=== PATIENT | male | born 1975 | race Caucasian/White ===

== ENCOUNTER 2022-10-27 20:58 | Inpatient (IN) | payer OTHER ==
[~2022-10-27 20:58] MED LIST: Iopamidol-370 76% 500 ML MDV (1 ML CHARGE) ONE
[2022-10-27] MEDS ORDERED: Rocuronium Bromide 10 MG/ML (10ML VIAL) ONE (21:02)
[2022-10-27 21:16] LABS: #Basophils 0.1 thou/uL (0.0-0.2); #Eosinphils 0.1 thou/uL (0.0-0.7); #Monocytes 0.7 thou/uL (0.11-0.59); #Neutrophils 14.2 thou/uL (1.40-6.50); %Basophils 0.3 % (0.0-1.0); %Eosinophils 0.3 % (0.0-10.0); %Lymphocytes 13.3 % (21.0-51.0); %Monocytes 3.8 % (0.0-10.0); %Neutrophils 81.7 % (42.0-75.0); Hemoglobin 9.2 g/dL (14.0-18.0); Mean Corpuscular HGB CONC 33.7 g/dL (32.0-36.0); Mean Corpuscular Hemoglobin 33.2 pg (27.0-31.0); Mean Corpuscular Volume 98.6 fl (78.0-98.0); Mean Platelet Volume 9.1 fL (7.4-10.4); Platelet Count 178 10x3/uL (130-400); RBC Distribution Width 13.9 % (11.5-14.5); Red Blood Cell (RBC) Count 2.77 mill/uL (4.70-6.10); White Blood Cell (WBC) Count 17.3 10x3/uL (4.8-10.8)
[2022-10-27] MEDS ORDERED: Propofol 1,000 MG/100 ML VIAL IV ONE (21:21)
[2022-10-27 21:26] LABS: INR-International Normal Ratio 1.4; Prothrombin Time 17.6 sec (12.0-14.7)
[2022-10-27] MEDS ORDERED: fentaNYL 50 mcg/mL 1 mL Vial ONE ×2 (21:36→22:50)
[2022-10-27 21:40] LABS: ALT (SGPT) 82 U/L (8-55); AST (SGOT) 221 U/L (5-34); Albumin 3.1 g/dL (3.5-5.0); Alkaline Phosphatase 40 U/L (40-110); Anion Gap 15 mmol/L (10-20); BUN (Urea Nitrogen) 11 mg/dL (8.9-20.6); Bilirubin, Total 0.4 mg/dL (0.2-1.2); Calc. Creatinine Clearance 0 mL/min (70-130); Calcium 8.2 mg/dL (7.8-10.44); Carbon Dioxide 20 mmol/L (22-29); Chloride 106 mmol/L (98-107); Estimated GFR 72; Globulin 1.5 g/dL (2.4-3.5); Glucose 192 mg/dL (70-105); Protein, Total 4.6 g/dL (6.0-8.3); Sodium 137 mmol/L (136-145)
[2022-10-27] MEDS ORDERED: Ondansetron PF 4 MG/2 ML Vial IVP PRN (21:40)
[2022-10-27] MEDS ORDERED: Dextrose 50% Abboject 50 ML SYRINGE SLOW IVP PRN (21:40)
[2022-10-27] MEDS ORDERED: Morphine 2 MG/ML VIAL SLOW IVP PRN (21:40)
[2022-10-27] MEDS ORDERED: Dextrose 5% in Water 1,000 ML IV PRN (21:40)
[2022-10-27] MEDS ORDERED: hydrALAZINE 20 MG/ML VIAL SLOW IVP PRN (21:40)
[2022-10-27] MEDS ORDERED: HumaLOG 300 UNITS/3 ML VIAL SC PRN ×2 (21:40)
[2022-10-27] MEDS ORDERED: Glucagon 1 MG/ML KIT IM PRN (21:40)
[2022-10-27] MEDS ORDERED: Fentanyl CADD 100 ML IV PRN (21:57)
[2022-10-27] MEDS ORDERED: Lidocaine 1% w/Epinephrine 1:100K 20 ML VIAL ONE ×2 (22:13→22:14)
[2022-10-27 23:35] LABS: Actual Bicarbonate (HCO3a) 20.5 mEq/L (22-28); Base Excess (BEa) -2.7 mEq/L (-2.0 to +3.0); CO2 Tension 30.3 mmHg (35.0-45.0); Carboxyhemoglobin (COHb) 0.3 gm% (0.0-3.0); Hematocrit-ABG 32 % (42.0-52.0); Hemoglobin (Hb) 10.8 g/dL (14.0-18.0); O2 Tension (PaO2), arterial 596.4 mmHg (80.0-100.0); Potassium - ABG Lab 3.46 mmol/L (3.70-5.30); pH, Arterial 7.448 (7.35-7.45)
[2022-10-27 23:36] LABS: Analyzer IN Cardio ER
[2022-10-27 23:37] LABS: ALT (SGPT) 83 U/L (8-55); AST (SGOT) 249 U/L (5-34); Albumin 3.5 g/dL (3.5-5.0); Alkaline Phosphatase 44 U/L (40-110); Bilirubin, Direct 0.6 mg/dL (0.1-0.3); Bilirubin, Total 1.5 mg/dL (0.2-1.2); CK (CPK) 904 U/L (30-200); Protein, Total 5.5 g/dL (6.0-8.3)
[2022-10-27 23:39] LABS: ALV-art Gradient 78.725 mmHg (0-20); Puncture Site RB
[2022-10-27 23:40] LABS: #Monocytes 0.5 thou/uL (0.11-0.59); #Neutrophils 8.3 thou/uL (1.40-6.50); %Basophils 0.1 % (0.0-1.0); %Eosinophils 0.2 % (0.0-10.0); %Lymphocytes 8.7 % (21.0-51.0); %Monocytes 5.2 % (0.0-10.0); %Neutrophils 85.3 % (42.0-75.0); Hemoglobin 10.6 g/dL (14.0-18.0); Mean Corpuscular HGB CONC 34.5 g/dL (32.0-36.0); Mean Platelet Volume 9.4 fL (7.4-10.4); Platelet Count 127 10x3/uL (130-400); RBC Distribution Width 15.4 % (11.5-14.5); Red Blood Cell (RBC) Count 3.31 mill/uL (4.70-6.10); White Blood Cell (WBC) Count 9.7 10x3/uL (4.8-10.8)
[2022-10-27 23:41] LABS: Mean Corpuscular Volume 92.7 fl (78.0-98.0)
[2022-10-27] MEDS ORDERED: Calcium Chloride 1 GM/10 ML Abboject SYRINGE IVP SCH (23:45)
[2022-10-27 23:53] LABS: Acetaminophen Less than 10 mcg/mL (10.0-30.0); Alcohol Less than 10.0 mg/dL (Less than 10); Salicylate Less than 8.0 mg/dL (15.0-30.0)
[2022-10-27 23:54] LABS: Anion Gap 15 mmol/L (10-20); BUN (Urea Nitrogen) 11 mg/dL (8.9-20.6); CK (CPK) 906 U/L (30-200); Calc. Creatinine Clearance 0 mL/min (70-130); Calcium 8.5 mg/dL (7.8-10.44); Carbon Dioxide 20 mmol/L (22-29); Chloride 105 mmol/L (98-107); Estimated GFR 89; Glucose 167 mg/dL (70-105); Magnesium 1.7 mg/dL (1.6-2.6); Phosphorus 3.8 mg/dL (2.3-4.7); Potassium 3.4 mmol/L (3.5-5.1); Sodium 137 mmol/L (136-145)
[2022-10-28 00:02] LABS: Amphetamine Not Detected (NotDetected); Barbiturates Screen Not Detected (NotDetected); Benzodiazepine Screen Not Detected (NotDetected); Cocaine Metabolite Screen Not Detected (NotDetected); Methadone Not Detected (NotDetected); Methamphetamine Not Detected (NotDetected); Opiate Screen Not Detected (NotDetected); Oxycodone Screen Not Detected (NotDetected); Phencyclidine (PCP) Not Detected (NotDetected); THC/Cannabinoid Screen Not Detected (NotDetected); Tricyclic Screen Not Detected (NotDetected)
[2022-10-28 00:10] LABS: Troponin I Less than 0.010 ng/mL (< 0.028)
[2022-10-28] MEDS: Sodium Chloride 0.9% 1,000 ML IV SCH ×2 (00:15→04:00)
[2022-10-28 04:26] LABS: #Monocytes 0.4 thou/uL (0.11-0.59); #Neutrophils 5.8 thou/uL (1.40-6.50); %Basophils 0.3 % (0.0-1.0); %Eosinophils 0.3 % (0.0-10.0); %Lymphocytes 12.8 % (21.0-51.0); %Monocytes 5.3 % (0.0-10.0); %Neutrophils 80.9 % (42.0-75.0); Hemoglobin 9.6 g/dL (14.0-18.0); Mean Corpuscular HGB CONC 33.9 g/dL (32.0-36.0); Mean Corpuscular Hemoglobin 31.8 pg (27.0-31.0); Mean Corpuscular Volume 93.7 fl (78.0-98.0); Mean Platelet Volume 9.6 fL (7.4-10.4); Platelet Count 133 10x3/uL (130-400); RBC Distribution Width 16.4 % (11.5-14.5); Red Blood Cell (RBC) Count 3.02 mill/uL (4.70-6.10); White Blood Cell (WBC) Count 7.1 10x3/uL (4.8-10.8)
[2022-10-28] MEDS: Propofol 1,000 MG/100 ML VIAL IV PRN ×2 (04:30→09:24)
[2022-10-28 04:38] LABS: INR-International Normal Ratio 1.2; Prothrombin Time 15.2 sec (12.0-14.7)
[2022-10-28 04:39] LABS: PTT 26.7 sec (22.9-36.1)
[2022-10-28 04:57] LABS: ALT (SGPT) 74 U/L (8-55); AST (SGOT) 258 U/L (5-34); Albumin 3.3 g/dL (3.5-5.0); Alkaline Phosphatase 40 U/L (40-110); Bilirubin, Direct 0.5 mg/dL (0.1-0.3); Lactic Acid 0.9 mmol/L (0.5-2.2); Magnesium 1.7 mg/dL (1.6-2.6); Protein, Total 5.1 g/dL (6.0-8.3)
[2022-10-28 04:58] LABS: Anion Gap 10 mmol/L (10-20); BUN (Urea Nitrogen) 12 mg/dL (8.9-20.6); CK (CPK) 1803 U/L (30-200); Calc. Creatinine Clearance 91 mL/min (70-130); Calcium 9.7 mg/dL (7.8-10.44); Carbon Dioxide 24 mmol/L (22-29); Chloride 108 mmol/L (98-107); Estimated GFR 107; Glucose 88 mg/dL (70-105); Potassium 3.9 mmol/L (3.5-5.1); Sodium 138 mmol/L (136-145)
[2022-10-28 05:00] LABS: Phosphorus 5.3 mg/dL (2.3-4.7)
[2022-10-28] MEDS: Ipratropium/Albuterol 3 ML NEB NEB SCH ×3 (06:37→18:07)
[2022-10-28 08:16] LABS: Actual Bicarbonate (HCO3a) 22.4 mEq/L (22-28); Base Excess (BEa) -3.3 mEq/L (-2.0 to +3.0); CO2 Tension 42.8 mmHg (35.0-45.0); Calcium, Ionized (arterial) 1.23 mmol/L (1.12-1.30); Hematocrit-ABG 30 % (42.0-52.0); Hemoglobin (Hb) 10.3 g/dL (14.0-18.0); O2 Tension (PaO2), arterial 106.2 mmHg (80.0-100.0); Potassium - ABG Lab 3.84 mmol/L (3.70-5.30); pH, Arterial 7.336 (7.35-7.45)
[2022-10-28 08:18] LABS: Puncture Site RRA
[2022-10-28] MEDS ORDERED: Magnesium 2 GM/50 ML(in water) 2 GM in Premix Bag 1 BAG IVPB SCH (08:30)
[2022-10-28 09:07] LABS: #Eosinphils 0.1 thou/uL (0.0-0.7); #Monocytes 0.3 thou/uL (0.11-0.59); #Neutrophils 4.7 thou/uL (1.40-6.50); %Basophils 0.5 % (0.0-1.0); %Eosinophils 1.4 % (0.0-10.0); %Monocytes 5.2 % (0.0-10.0); %Neutrophils 73.8 % (42.0-75.0); Hemoglobin 9.8 g/dL (14.0-18.0); Mean Corpuscular HGB CONC 34.1 g/dL (32.0-36.0); Mean Corpuscular Hemoglobin 31.7 pg (27.0-31.0); Mean Corpuscular Volume 92.9 fl (78.0-98.0); RBC Distribution Width 16.9 % (11.5-14.5); Red Blood Cell (RBC) Count 3.09 mill/uL (4.70-6.10); White Blood Cell (WBC) Count 6.4 10x3/uL (4.8-10.8)
[2022-10-28] MEDS: Famotidine/PF 20 mg/2ml Vial SLOW IVP SCH ×2 (09:24→22:47)
[2022-10-28] MEDS ORDERED: traMADol HCl 50 MG TAB PO PRN (10:40)
[2022-10-28] MEDS ORDERED: Oxazepam 10 MG CAP PO SCH ×2 (10:51→14:00)
[2022-10-28] MEDS: D5 1/2 NS w/10 mEq KCl 1,000 ML/1,000 ML BAG IV SCH ×2 (11:14→17:14)
[2022-10-28] MEDS: cloNIDine 0.1 MG TAB PO SCH ×2 (11:26→17:15)
[2022-10-28] MEDS: Oxazepam 10 MG CAP PO SCH ×3 (11:26→20:03)
[2022-10-28] MEDS: Morphine 2 MG/ML VIAL SLOW IVP PRN ×4 (11:26→18:35)
[2022-10-28] MEDS ORDERED: Acetaminophen 500 MG TAB PO SCH (12:00)
[2022-10-28] MEDS ORDERED: traMADol HCl 50 MG TAB PO SCH (12:00)
[2022-10-28 12:04] LABS: #Eosinphils 0.2 thou/uL (0.0-0.7); #Monocytes 0.4 thou/uL (0.11-0.59); %Basophils 0.5 % (0.0-1.0); %Eosinophils 1.9 % (0.0-10.0); %Lymphocytes 20.7 % (21.0-51.0); %Monocytes 4.8 % (0.0-10.0); %Neutrophils 71.9 % (42.0-75.0); Hemoglobin 9.9 g/dL (14.0-18.0); Mean Corpuscular HGB CONC 34.1 g/dL (32.0-36.0); Mean Corpuscular Hemoglobin 32.5 pg (27.0-31.0); Mean Corpuscular Volume 95.1 fl (78.0-98.0); Mean Platelet Volume 10.5 fL (7.4-10.4); RBC Distribution Width 17.3 % (11.5-14.5); Red Blood Cell (RBC) Count 3.05 mill/uL (4.70-6.10); White Blood Cell (WBC) Count 8.3 10x3/uL (4.8-10.8)
[2022-10-28 12:08] LABS: Platelet Count 149 10x3/uL (130-400)
[2022-10-28] MEDS: traMADol HCl 50 MG TAB PO SCH ×2 (12:24→20:02)
[2022-10-28] MEDS: Acetaminophen 500 MG TAB PO SCH ×2 (12:26→17:14)
[2022-10-28 18:33] LABS: #Monocytes 0.4 thou/uL (0.11-0.59); #Neutrophils 5.5 thou/uL (1.40-6.50); %Basophils 0.3 % (0.0-1.0); %Eosinophils 0.5 % (0.0-10.0); %Lymphocytes 10.5 % (21.0-51.0); %Monocytes 5.3 % (0.0-10.0); %Neutrophils 83.1 % (42.0-75.0); Hemoglobin 8.2 g/dL (14.0-18.0); Mean Corpuscular HGB CONC 34.2 g/dL (32.0-36.0); Mean Corpuscular Hemoglobin 32.2 pg (27.0-31.0); Mean Corpuscular Volume 94.1 fl (78.0-98.0); Mean Platelet Volume 10.5 fL (7.4-10.4); RBC Distribution Width 16.8 % (11.5-14.5); Red Blood Cell (RBC) Count 2.55 mill/uL (4.70-6.10); White Blood Cell (WBC) Count 6.6 10x3/uL (4.8-10.8)
[2022-10-28 18:36] LABS: Platelet Count 60 10x3/uL (130-400)
[2022-10-28] MEDS ORDERED: HYDROmorphone 10 mg/100 ml CADD IVPB PRN (19:59)
[2022-10-28] MEDS ORDERED: Promethazine HCl 25 MG/ML VIAL IM PRN (19:59)
[2022-10-28] MEDS ORDERED: Ondansetron PF 4 MG/2 ML Vial IVP PRN (19:59)
[2022-10-28] MEDS ORDERED: Naloxone HCl 0.4 mg/ml Vial IV PRN (19:59)
[2022-10-28] MEDS ORDERED: diphenhydrAMINE 50 MG/ML VIAL IVP PRN (19:59)
[2022-10-28] MEDS ORDERED: diphenhydrAMINE 50 MG/ML VIAL IM PRN (19:59)
[2022-10-28] MEDS ORDERED: Communication Order-Pharmacy FS SCH (20:00)
[2022-10-28] MEDS: Nicotine 7 MG PATCH TD SCH (20:02)
[2022-10-29] MEDS: cloNIDine 0.1 MG TAB PO SCH ×4 (00:02→17:17)
[2022-10-29] MEDS: Oxazepam 10 MG CAP PO SCH ×7 (00:03→23:35)
[2022-10-29] MEDS: Acetaminophen 500 MG TAB PO SCH ×5 (00:03→23:35)
[2022-10-29] MEDS: diphenhydrAMINE 25 MG CAP PO PRN (01:12)
[2022-10-29] MEDS: D5 1/2 NS w/10 mEq KCl 1,000 ML/1,000 ML BAG IV SCH ×2 (01:27→07:52)
[2022-10-29 04:15] LABS: ALT (SGPT) 81 U/L (8-55); AST (SGOT) 203 U/L (5-34); Albumin 3.3 g/dL (3.5-5.0); Alkaline Phosphatase 41 U/L (40-110); Bilirubin, Direct 0.4 mg/dL (0.1-0.3); Bilirubin, Total 1.2 mg/dL (0.2-1.2); Protein, Total 5.3 g/dL (6.0-8.3)
[2022-10-29 04:19] LABS: Anion Gap 9 mmol/L (10-20); BUN (Urea Nitrogen) 9 mg/dL (8.9-20.6); CK (CPK) 3322 U/L (30-200); Calc. Creatinine Clearance 121 mL/min (70-130); Calcium 8.1 mg/dL (7.8-10.44); Carbon Dioxide 23 mmol/L (22-29); Chloride 104 mmol/L (98-107); Estimated GFR 116; Glucose 97 mg/dL (70-105); Magnesium 1.9 mg/dL (1.6-2.6); Phosphorus 2.4 mg/dL (2.3-4.7); Potassium 4.2 mmol/L (3.5-5.1); Sodium 132 mmol/L (136-145)
[2022-10-29 06:30] LABS: #Eosinphils 0.2 thou/uL (0.0-0.7); #Monocytes 0.5 thou/uL (0.11-0.59); #Neutrophils 5.1 thou/uL (1.40-6.50); %Basophils 0.6 % (0.0-1.0); %Eosinophils 2.8 % (0.0-10.0); %Lymphocytes 13.2 % (21.0-51.0); %Monocytes 7.6 % (0.0-10.0); %Neutrophils 75.5 % (42.0-75.0); Hemoglobin 8.1 g/dL (14.0-18.0); Mean Corpuscular HGB CONC 34.2 g/dL (32.0-36.0); Mean Corpuscular Hemoglobin 32.4 pg (27.0-31.0); Mean Corpuscular Volume 94.8 fl (78.0-98.0); RBC Distribution Width 15.9 % (11.5-14.5); White Blood Cell (WBC) Count 6.7 10x3/uL (4.8-10.8)
[2022-10-29 06:31] LABS: Platelet Count 136 10x3/uL (130-400)
[2022-10-29] MEDS: Ipratropium/Albuterol 3 ML NEB NEB SCH ×3 (06:55→18:15)
[2022-10-29] MEDS ORDERED: D5 1/2 NS w/10 mEq KCl 1,000 ML/1,000 ML BAG IV SCH (07:18)
[2022-10-29] MEDS: Famotidine/PF 20 mg/2ml Vial SLOW IVP SCH ×2 (07:55→20:15)
[2022-10-29] MEDS: Sodium Chloride 0.9% 1,000 ML IV SCH ×3 (07:56→21:22)
[2022-10-29] MEDS ORDERED: Magnesium 2 GM/50 ML(in water) 2 GM in Premix Bag 1 BAG IVPB SCH (09:45)
[2022-10-29] MEDS ORDERED: Fentanyl 250 MCG/5 ML VIAL ONE (11:07)
[2022-10-29] MEDS ORDERED: HYDROmorphone 0.5 MG/0.5 ML SYRINGE ONE (11:07)
[2022-10-29] MEDS ORDERED: Rocuronium Bromide 10 MG/ML (10ML VIAL) ONE (11:28)
[2022-10-29] MEDS ORDERED: PROPOFOL 200 MG/20 ML VIAL ONE (11:28)
[2022-10-29] MEDS ORDERED: Dexamethasone 20 MG/5 ML VIAL ONE (11:28)
[2022-10-29] MEDS ORDERED: Ondansetron PF 4 MG/2 ML Vial ONE (11:28)
[2022-10-29] MEDS ORDERED: Ketorolac Tromethamine 30 MG/ML VIAL ONE (11:28)
[2022-10-29] MEDS ORDERED: Lidocaine 1% PF 5 ML VIAL ONE (11:28)
[2022-10-29] MEDS ORDERED: SUGAMMADEX SODIUM 200 MG/2 ML VIAL ONE (12:59)
[2022-10-29] MEDS: CEFAZOLIN 2 GM in Sodium Chloride 0.9% 100 ML IVPB SCH ×2 (14:08→21:51)
[2022-10-29] MEDS: Nicotine 7 MG PATCH TD SCH (20:14)
[2022-10-29 20:35] LABS: #Monocytes 0.2 thou/uL (0.11-0.59); #Neutrophils 4.9 thou/uL (1.40-6.50); %Basophils 0.2 % (0.0-1.0); %Eosinophils 0.2 % (0.0-10.0); %Lymphocytes 4.9 % (21.0-51.0); %Monocytes 4.4 % (0.0-10.0); %Neutrophils 89.9 % (42.0-75.0); Hemoglobin 7.4 g/dL (14.0-18.0); Mean Corpuscular HGB CONC 33.6 g/dL (32.0-36.0); Mean Corpuscular Volume 95.2 fl (78.0-98.0); Mean Platelet Volume 10.8 fL (7.4-10.4); RBC Distribution Width 15.8 % (11.5-14.5); Red Blood Cell (RBC) Count 2.31 mill/uL (4.70-6.10); White Blood Cell (WBC) Count 5.5 10x3/uL (4.8-10.8)
[2022-10-29 20:40] LABS: Platelet Count 110 10x3/uL (130-400)
[2022-10-30] MEDS: cloNIDine 0.1 MG TAB PO SCH ×5 (00:41→23:46)
[2022-10-30 04:52] LABS: #Monocytes 0.4 thou/uL (0.11-0.59); #Neutrophils 4.2 thou/uL (1.40-6.50); %Basophils 0.2 % (0.0-1.0); %Lymphocytes 8.4 % (21.0-51.0); %Monocytes 7.2 % (0.0-10.0); %Neutrophils 83.4 % (42.0-75.0); Hemoglobin 8.1 g/dL (14.0-18.0); Mean Corpuscular Hemoglobin 32.4 pg (27.0-31.0); Mean Corpuscular Volume 95.2 fl (78.0-98.0); Mean Platelet Volume 10.4 fL (7.4-10.4); RBC Distribution Width 14.7 % (11.5-14.5)
[2022-10-30 04:54] LABS: Platelet Count 112 10x3/uL (130-400)
[2022-10-30] MEDS: Oxazepam 10 MG CAP PO SCH ×6 (04:56→23:45)
[2022-10-30] MEDS: Sodium Chloride 0.9% 1,000 ML IV SCH ×3 (04:57→15:08)
[2022-10-30 05:03] LABS: INR-International Normal Ratio 1.2; PTT 30.2 sec (22.9-36.1); Prothrombin Time 15.4 sec (12.0-14.7)
[2022-10-30] MEDS: Acetaminophen 500 MG TAB PO SCH ×4 (05:05→23:45)
[2022-10-30 05:21] LABS: Anion Gap 10 mmol/L (10-20); BUN (Urea Nitrogen) 8 mg/dL (8.9-20.6); CK (CPK) 2226 U/L (30-200); Calc. Creatinine Clearance 126 mL/min (70-130); Calcium 7.8 mg/dL (7.8-10.44); Carbon Dioxide 20 mmol/L (22-29); Chloride 110 mmol/L (98-107); Estimated GFR 116; Glucose 177 mg/dL (70-105); Magnesium 2.2 mg/dL (1.6-2.6); Phosphorus 1.5 mg/dL (2.3-4.7); Potassium 3.8 mmol/L (3.5-5.1); Sodium 136 mmol/L (136-145)
[2022-10-30] MEDS: Ipratropium/Albuterol 3 ML NEB NEB SCH ×3 (07:15→18:55)
[2022-10-30] MEDS: Famotidine/PF 20 mg/2ml Vial SLOW IVP SCH ×2 (07:52→20:06)
[2022-10-30] MEDS ORDERED: Potassium Phosphate 30 MMOL in Sodium Chloride 0.9% 250 ML 250 ML IVPB SCH ×2 (08:00→15:15)
[2022-10-30] MEDS ORDERED: Nicotine 21 MG PATCH TD SCH (12:15)
[2022-10-30] MEDS: Senokot S 8.6-50 MG TAB PO SCH (20:06)
[2022-10-31] MEDS: Oxazepam 10 MG CAP PO SCH ×3 (03:41→18:14)
[2022-10-31] MEDS: cloNIDine 0.1 MG TAB PO SCH ×4 (05:50→23:16)
[2022-10-31] MEDS: Acetaminophen 500 MG TAB PO SCH ×4 (05:50→23:16)
[2022-10-31] MEDS: Ipratropium/Albuterol 3 ML NEB NEB SCH ×3 (07:30→19:17)
[2022-10-31 08:41] LABS: #Eosinphils 0.2 thou/uL (0.0-0.7); #Monocytes 0.6 thou/uL (0.11-0.59); #Neutrophils 3.8 thou/uL (1.40-6.50); %Basophils 0.4 % (0.0-1.0); %Eosinophils 3.3 % (0.0-10.0); %Lymphocytes 18.9 % (21.0-51.0); %Monocytes 10.9 % (0.0-10.0); Hemoglobin 9.6 g/dL (14.0-18.0); Mean Corpuscular HGB CONC 34.3 g/dL (32.0-36.0); Mean Corpuscular Hemoglobin 32.8 pg (27.0-31.0); Mean Corpuscular Volume 95.6 fl (78.0-98.0); Mean Platelet Volume 9.2 fL (7.4-10.4); Platelet Count 146 10x3/uL (130-400); RBC Distribution Width 15.4 % (11.5-14.5); Red Blood Cell (RBC) Count 2.93 mill/uL (4.70-6.10); White Blood Cell (WBC) Count 5.7 10x3/uL (4.8-10.8)
[2022-10-31] MEDS: Famotidine/PF 20 mg/2ml Vial SLOW IVP SCH ×2 (09:05→20:20)
[2022-10-31] MEDS: Senokot S 8.6-50 MG TAB PO SCH ×2 (09:05→20:21)
[2022-10-31] MEDS: Nicotine 21 MG PATCH TD SCH (09:06)
[2022-10-31] MEDS: Polyethylene Glycol 3350 17 GM Packet PO SCH (09:06)
[2022-10-31] MEDS: Gabapentin 300 MG CAP PO SCH ×2 (14:03→20:20)
[2022-10-31] MEDS: traMADol HCl 50 MG TAB PO SCH ×3 (14:04→23:14)
[2022-10-31] MEDS: Cyclobenzaprine 10 MG TAB PO PRN (20:20)
[2022-11-01] MEDS: traMADol HCl 50 MG TAB PO SCH ×4 (06:24→23:45)
[2022-11-01] MEDS: Acetaminophen 500 MG TAB PO SCH ×4 (06:24→23:44)
[2022-11-01] MEDS: cloNIDine 0.1 MG TAB PO SCH ×4 (06:24→23:44)
[2022-11-01 06:47] LABS: #Eosinphils 0.2 thou/uL (0.0-0.7); #Monocytes 0.8 thou/uL (0.11-0.59); #Neutrophils 2.5 thou/uL (1.40-6.50); %Basophils 0.8 % (0.0-1.0); %Eosinophils 4.7 % (0.0-10.0); %Lymphocytes 26.2 % (21.0-51.0); %Monocytes 15.9 % (0.0-10.0); Hemoglobin 9.8 g/dL (14.0-18.0); Mean Corpuscular Hemoglobin 32.5 pg (27.0-31.0); Mean Corpuscular Volume 95.4 fl (78.0-98.0); Mean Platelet Volume 9.1 fL (7.4-10.4); Platelet Count 185 10x3/uL (130-400); RBC Distribution Width 14.8 % (11.5-14.5); Red Blood Cell (RBC) Count 3.02 mill/uL (4.70-6.10); White Blood Cell (WBC) Count 4.7 10x3/uL (4.8-10.8)
[2022-11-01] MEDS: Ipratropium/Albuterol 3 ML NEB NEB SCH ×3 (07:02→17:58)
[2022-11-01 07:12] LABS: Anion Gap 12 mmol/L (10-20); BUN (Urea Nitrogen) Less than 4 mg/dL (8.9-20.6); CK (CPK) 748 U/L (30-200); Calc. Creatinine Clearance 149 mL/min (70-130); Calcium 8.2 mg/dL (7.8-10.44); Carbon Dioxide 23 mmol/L (22-29); Chloride 108 mmol/L (98-107); Estimated GFR 120; Glucose 91 mg/dL (70-105); Magnesium 1.5 mg/dL (1.6-2.6); Phosphorus 3.5 mg/dL (2.3-4.7); Potassium 3.7 mmol/L (3.5-5.1); Sodium 139 mmol/L (136-145)
[2022-11-01] MEDS: Gabapentin 300 MG CAP PO SCH ×3 (09:11→20:44)
[2022-11-01] MEDS: Nicotine 21 MG PATCH TD SCH (09:12)
[2022-11-01] MEDS ORDERED: Magnesium Sulfate In Water 4 GM in Premix Bag 1 BAG IVPB SCH (09:15)
[2022-11-01] MEDS: Famotidine/PF 20 mg/2ml Vial SLOW IVP SCH (09:18)
[2022-11-01] MEDS: Senokot S 8.6-50 MG TAB PO SCH ×2 (09:18→22:05)
[2022-11-01] MEDS: Polyethylene Glycol 3350 17 GM Packet PO SCH (09:18)
[2022-11-01] MEDS: Ibuprofen 200 MG TAB PO SCH ×2 (14:21→20:45)
[2022-11-01] MEDS: Cyclobenzaprine 10 MG TAB PO PRN (21:22)
[2022-11-02] MEDS: Ibuprofen 200 MG TAB PO SCH ×4 (06:02→21:10)
[2022-11-02] MEDS: traMADol HCl 50 MG TAB PO SCH ×4 (06:16→23:34)
[2022-11-02] MEDS: Acetaminophen 500 MG TAB PO SCH ×4 (06:17→23:35)
[2022-11-02] MEDS: cloNIDine 0.1 MG TAB PO SCH ×4 (06:17→23:33)
[2022-11-02] MEDS: Ipratropium/Albuterol 3 ML NEB NEB SCH ×3 (06:50→19:14)
[2022-11-02] MEDS: Folic Acid 1 MG TAB PO SCH (09:33)
[2022-11-02] MEDS: Senokot S 8.6-50 MG TAB PO SCH ×2 (09:33→23:25)
[2022-11-02] MEDS: Multivitamin W/ Minerals 1 TAB PO SCH (09:33)
[2022-11-02] MEDS: Nicotine 21 MG PATCH TD SCH (09:34)
[2022-11-02] MEDS: Thiamine 100 MG TAB PO SCH (09:34)
[2022-11-02] MEDS: Gabapentin 300 MG CAP PO SCH ×3 (09:38→21:10)
[2022-11-02] MEDS: Polyethylene Glycol 3350 17 GM Packet PO SCH (09:46)
[2022-11-02] MEDS: Bisacodyl 10 MG SUPP PR SCH (09:46)
[2022-11-02] MEDS: diphenhydrAMINE 25 MG CAP PO PRN (21:10)
[2022-11-03] MEDS: Ibuprofen 200 MG TAB PO SCH ×4 (03:35→21:12)
[2022-11-03] MEDS: cloNIDine 0.1 MG TAB PO SCH ×3 (05:21→21:14)
[2022-11-03] MEDS: traMADol HCl 50 MG TAB PO SCH ×3 (05:21→18:08)
[2022-11-03] MEDS: Acetaminophen 500 MG TAB PO SCH ×3 (05:22→18:08)
[2022-11-03] MEDS: Ipratropium/Albuterol 3 ML NEB NEB SCH ×3 (07:15→18:10)
[2022-11-03] MEDS: Multivitamin W/ Minerals 1 TAB PO SCH (09:23)
[2022-11-03] MEDS: Folic Acid 1 MG TAB PO SCH (09:23)
[2022-11-03] MEDS: Thiamine 100 MG TAB PO SCH (09:25)
[2022-11-03] MEDS: Gabapentin 300 MG CAP PO SCH ×3 (09:25→21:13)
[2022-11-03] MEDS: Nicotine 21 MG PATCH TD SCH (09:26)
[2022-11-03] MEDS: Bisacodyl 10 MG SUPP PR SCH (09:26)
[2022-11-03] MEDS: Senokot S 8.6-50 MG TAB PO SCH ×2 (09:27→21:12)
[2022-11-03] MEDS: Polyethylene Glycol 3350 17 GM Packet PO SCH (09:27)
[2022-11-03] MEDS ORDERED: Bisacodyl 5 MG TAB PO SCH (21:00)
[2022-11-03] MEDS: Lisinopril 10 MG TAB PO SCH (21:13)
[2022-11-03] MEDS: diphenhydrAMINE 25 MG CAP PO PRN (21:22)
[2022-11-03] MEDS: Cyclobenzaprine 10 MG TAB PO PRN (21:22)
[2022-11-04] MEDS: Acetaminophen 500 MG TAB PO SCH ×3 (01:19→12:25)
[2022-11-04] MEDS: Ibuprofen 200 MG TAB PO SCH ×4 (01:20→21:00)
[2022-11-04] MEDS: traMADol HCl 50 MG TAB PO SCH ×4 (01:20→17:31)
[2022-11-04] MEDS: Ipratropium/Albuterol 3 ML NEB NEB SCH ×3 (06:33→18:59)
[2022-11-04] MEDS ORDERED: Naloxegol 12.5 MG TAB PO SCH (07:30)
[2022-11-04] MEDS: Folic Acid 1 MG TAB PO SCH (08:05)
[2022-11-04] MEDS: Multivitamin W/ Minerals 1 TAB PO SCH (08:05)
[2022-11-04] MEDS: Gabapentin 300 MG CAP PO SCH ×3 (08:05→21:00)
[2022-11-04] MEDS: Thiamine 100 MG TAB PO SCH (08:06)
[2022-11-04] MEDS: Bisacodyl 10 MG SUPP PR SCH (08:06)
[2022-11-04] MEDS: Nicotine 21 MG PATCH TD SCH (08:06)
[2022-11-04] MEDS: Senokot S 8.6-50 MG TAB PO SCH ×2 (08:07→21:02)
[2022-11-04] MEDS: cloNIDine 0.1 MG TAB PO SCH ×2 (08:07→21:01)
[2022-11-04] MEDS: Polyethylene Glycol 3350 17 GM Packet PO SCH (08:07)
[2022-11-04] MEDS: Cyclobenzaprine 10 MG TAB PO PRN ×2 (10:00→21:02)
[2022-11-04] MEDS ORDERED: Acetaminophen/Codeine 30-300mg Tablet PO PRN (16:51)
[2022-11-04] MEDS: Acetaminophen 325 MG TAB PO SCH (17:31)
[2022-11-04] MEDS: Lisinopril 10 MG TAB PO SCH (21:01)
[2022-11-05] MEDS: Acetaminophen 325 MG TAB PO SCH ×4 (00:43→17:29)
[2022-11-05] MEDS: diphenhydrAMINE 25 MG CAP PO PRN (00:43)
[2022-11-05] MEDS: traMADol HCl 50 MG TAB PO SCH (00:44)
[2022-11-05] MEDS: Ibuprofen 200 MG TAB PO SCH ×4 (02:22→21:54)
[2022-11-05] MEDS ORDERED: Oxazepam 10 MG CAP PO SCH (02:30)
[2022-11-05 02:45] LABS: Bacteria/HPF None Seen HPF (None Seen); Bilirubin Negative (Negative); Blood, Urine 1+ (Negative); CAUTI Indications for Culture Alt mental st,lethar; Clarity Clear (Clear); Glucose, Urine (Dipstick) Normal (Negative); Ketone, Urine Negative (Negative); Leukocyte Negative Leu/uL (Negative); Nitrite Negative (Negative); Protein, Urine (Dipstick) Negative (Neg-Trace); Specific Gravity, Urine 1.011 (1.002-1.036); Squamous Epithelial 0-3 HPF (0-3); Urobilinogen 3 mg/dL (Less than 2); WBC/HPF 0-3 HPF (0-3); pH, Urine 6.5 (5.0-9.0)
[2022-11-05 02:57] LABS: #Basophils 0.1 thou/uL (0.0-0.2); #Eosinphils 0.3 thou/uL (0.0-0.7); #Monocytes 0.9 thou/uL (0.11-0.59); #Neutrophils 5.4 thou/uL (1.40-6.50); %Basophils 0.6 % (0.0-1.0); %Eosinophils 4.1 % (0.0-10.0); %Lymphocytes 20.3 % (21.0-51.0); %Monocytes 10.3 % (0.0-10.0); %Neutrophils 64.1 % (42.0-75.0); Hemoglobin 10.3 g/dL (14.0-18.0); Mean Corpuscular HGB CONC 32.1 g/dL (32.0-36.0); Mean Corpuscular Hemoglobin 31.8 pg (27.0-31.0); Mean Corpuscular Volume 99.1 fl (78.0-98.0); Mean Platelet Volume 8.7 fL (7.4-10.4); Platelet Count 326 10x3/uL (130-400); RBC Distribution Width 14.5 % (11.5-14.5); Red Blood Cell (RBC) Count 3.24 mill/uL (4.70-6.10); White Blood Cell (WBC) Count 8.4 10x3/uL (4.8-10.8)
[2022-11-05 03:19] LABS: Urine Culture Reflex No No
[2022-11-05 03:21] LABS: ALT (SGPT) 29 U/L (8-55); AST (SGOT) 36 U/L (5-34); Albumin 3.3 g/dL (3.5-5.0); Alkaline Phosphatase 105 U/L (40-110); Anion Gap 15 mmol/L (10-20); BUN (Urea Nitrogen) 7 mg/dL (8.9-20.6); Bilirubin, Total 1.5 mg/dL (0.2-1.2); Calc. Creatinine Clearance 108 mL/min (70-130); Calcium 8.9 mg/dL (7.8-10.44); Carbon Dioxide 23 mmol/L (22-29); Chloride 106 mmol/L (98-107); Estimated GFR 113; Globulin 2.7 g/dL (2.4-3.5); Glucose 97 mg/dL (70-105); Potassium 3.6 mmol/L (3.5-5.1); Sodium 140 mmol/L (136-145)
[2022-11-05] MEDS: Ipratropium/Albuterol 3 ML NEB NEB SCH ×2 (07:18→12:37)
[2022-11-05] MEDS: Acetaminophen/Codeine 30-300mg Tablet PO SCH ×3 (08:19→17:29)
[2022-11-05] MEDS: cloNIDine 0.1 MG TAB PO SCH ×2 (08:45→21:54)
[2022-11-05] MEDS: Oxazepam 10 MG CAP PO SCH ×3 (08:46→21:56)
[2022-11-05] MEDS: Folic Acid 1 MG TAB PO SCH (08:46)
[2022-11-05] MEDS: Multivitamin W/ Minerals 1 TAB PO SCH (08:46)
[2022-11-05] MEDS: Thiamine 100 MG TAB PO SCH (08:46)
[2022-11-05] MEDS: Gabapentin 300 MG CAP PO SCH ×3 (08:47→21:55)
[2022-11-05] MEDS: Polyethylene Glycol 3350 17 GM Packet PO SCH (08:48)
[2022-11-05] MEDS: Nicotine 21 MG PATCH TD SCH (08:48)
[2022-11-05] MEDS: Senokot S 8.6-50 MG TAB PO SCH ×2 (08:48→21:56)
[2022-11-05] MEDS: Bisacodyl 10 MG SUPP PR SCH (08:48)
[2022-11-05] MEDS ORDERED: Magnesium Sulfate In Water 4 GM in Premix Bag 1 BAG IVPB SCH (09:00)
[2022-11-05] MEDS ORDERED: Ipratropium/Albuterol 3 ML NEB NEB PRN (13:15)
[2022-11-05] MEDS: Melatonin 3 MG TAB PO PRN (21:55)
[2022-11-05] MEDS: Lisinopril 10 MG TAB PO SCH (21:55)
[2022-11-06] MEDS: Acetaminophen 325 MG TAB PO SCH ×5 (02:26→23:17)
[2022-11-06] MEDS: Acetaminophen/Codeine 30-300mg Tablet PO SCH ×5 (04:38→23:18)
[2022-11-06] MEDS: Ibuprofen 200 MG TAB PO SCH ×4 (04:38→21:16)
[2022-11-06] MEDS: Cyclobenzaprine 10 MG TAB PO PRN ×2 (05:35→21:17)
[2022-11-06] MEDS: Thiamine 100 MG TAB PO SCH (09:03)
[2022-11-06] MEDS: Multivitamin W/ Minerals 1 TAB PO SCH (09:03)
[2022-11-06] MEDS: Folic Acid 1 MG TAB PO SCH (09:03)
[2022-11-06] MEDS: Gabapentin 300 MG CAP PO SCH ×3 (09:03→21:17)
[2022-11-06] MEDS: cloNIDine 0.1 MG TAB PO SCH ×2 (09:04→21:18)
[2022-11-06] MEDS: Nicotine 21 MG PATCH TD SCH (09:05)
[2022-11-06] MEDS: Oxazepam 10 MG CAP PO SCH ×3 (09:05→21:17)
[2022-11-06] MEDS: Polyethylene Glycol 3350 17 GM Packet PO SCH (09:06)
[2022-11-06] MEDS: Bisacodyl 10 MG SUPP PR SCH (09:06)
[2022-11-06] MEDS: Senokot S 8.6-50 MG TAB PO SCH ×2 (09:07→21:18)
[2022-11-06] MEDS: Acetaminophen/Codeine 30-300mg Tablet PO PRN (14:29)
[2022-11-06 15:26] VITALS: BMI 20.8
[2022-11-06] MEDS: Lisinopril 10 MG TAB PO SCH (21:17)
[2022-11-07] MEDS: Acetaminophen/Codeine 30-300mg Tablet PO PRN ×2 (02:07→08:48)
[2022-11-07] MEDS: Ibuprofen 200 MG TAB PO SCH ×4 (02:07→20:21)
[2022-11-07] MEDS: Acetaminophen/Codeine 30-300mg Tablet PO SCH ×4 (05:46→23:32)
[2022-11-07] MEDS: Acetaminophen 325 MG TAB PO SCH ×3 (05:46→18:32)
[2022-11-07] MEDS: cloNIDine 0.1 MG TAB PO SCH ×2 (08:49→20:20)
[2022-11-07] MEDS: Multivitamin W/ Minerals 1 TAB PO SCH (08:49)
[2022-11-07] MEDS: Folic Acid 1 MG TAB PO SCH (08:50)
[2022-11-07] MEDS: Gabapentin 300 MG CAP PO SCH (08:50)
[2022-11-07] MEDS: Thiamine 100 MG TAB PO SCH (08:51)
[2022-11-07] MEDS: Senokot S 8.6-50 MG TAB PO SCH ×2 (08:51→20:21)
[2022-11-07] MEDS: Oxazepam 10 MG CAP PO SCH ×3 (08:51→20:20)
[2022-11-07] MEDS: Polyethylene Glycol 3350 17 GM Packet PO SCH ×2 (08:52→10:47)
[2022-11-07] MEDS: Nicotine 21 MG PATCH TD SCH (08:52)
[2022-11-07] MEDS ORDERED: Acetaminophen/Codeine 30-300mg Tablet PO SCH (08:54)
[2022-11-07] MEDS ORDERED: Pregabalin 50 MG CAP PO SCH (09:00)
[2022-11-07] MEDS: Bisacodyl 10 MG SUPP PR SCH (09:01)
[2022-11-07] MEDS: Cyclobenzaprine 10 MG TAB PO PRN ×2 (12:23→20:29)
[2022-11-07] MEDS: Pregabalin 50 MG CAP PO SCH ×3 (15:05→20:22)
[2022-11-07] MEDS: Lisinopril 10 MG TAB PO SCH (20:21)
[2022-11-08] MEDS: Acetaminophen 325 MG TAB PO SCH ×3 (01:26→20:03)
[2022-11-08] MEDS: Ibuprofen 200 MG TAB PO SCH ×4 (01:27→20:58)
[2022-11-08] MEDS: Acetaminophen/Codeine 30-300mg Tablet PO SCH ×4 (06:02→23:19)
[2022-11-08] MEDS: Thiamine 100 MG TAB PO SCH (09:09)
[2022-11-08] MEDS: Senokot S 8.6-50 MG TAB PO SCH ×2 (09:09→20:59)
[2022-11-08] MEDS: Multivitamin W/ Minerals 1 TAB PO SCH (09:09)
[2022-11-08] MEDS: Oxazepam 10 MG CAP PO SCH ×3 (09:10→20:58)
[2022-11-08] MEDS: cloNIDine 0.1 MG TAB PO SCH ×2 (09:10→20:56)
[2022-11-08] MEDS: Folic Acid 1 MG TAB PO SCH (09:10)
[2022-11-08] MEDS: Nicotine 21 MG PATCH TD SCH (09:11)
[2022-11-08] MEDS: Bisacodyl 10 MG SUPP PR SCH (09:12)
[2022-11-08] MEDS: Polyethylene Glycol 3350 17 GM Packet PO SCH (09:13)
[2022-11-08] MEDS: Pregabalin 50 MG CAP PO SCH ×3 (09:13→20:57)
[2022-11-08] MEDS: Cyclobenzaprine 10 MG TAB PO PRN (12:52)
[2022-11-08] MEDS: Lisinopril 10 MG TAB PO SCH (20:57)
[2022-11-09] MEDS: Ibuprofen 200 MG TAB PO SCH ×4 (02:54→20:26)
[2022-11-09] MEDS: Acetaminophen/Codeine 30-300mg Tablet PO SCH ×3 (05:28→18:22)
[2022-11-09] MEDS: Pregabalin 50 MG CAP PO SCH ×3 (09:58→20:27)
[2022-11-09] MEDS: Oxazepam 10 MG CAP PO SCH ×3 (09:58→20:28)
[2022-11-09] MEDS: Folic Acid 1 MG TAB PO SCH (09:59)
[2022-11-09] MEDS: cloNIDine 0.1 MG TAB PO SCH ×2 (09:59→20:27)
[2022-11-09] MEDS: Thiamine 100 MG TAB PO SCH (09:59)
[2022-11-09] MEDS: Multivitamin W/ Minerals 1 TAB PO SCH (10:01)
[2022-11-09] MEDS: Nicotine 21 MG PATCH TD SCH (10:02)
[2022-11-09] MEDS: Bisacodyl 10 MG SUPP PR SCH (10:02)
[2022-11-09] MEDS: Senokot S 8.6-50 MG TAB PO SCH ×2 (10:03→20:28)
[2022-11-09] MEDS: Polyethylene Glycol 3350 17 GM Packet PO SCH (10:03)
[2022-11-09] MEDS: Lisinopril 10 MG TAB PO SCH (20:27)
[2022-11-09] MEDS: Melatonin 3 MG TAB PO PRN (20:27)
[2022-11-10] MEDS: Acetaminophen/Codeine 30-300mg Tablet PO SCH ×5 (00:25→23:14)
[2022-11-10] MEDS: Ibuprofen 200 MG TAB PO SCH ×4 (02:03→19:34)
[2022-11-10] MEDS: Multivitamin W/ Minerals 1 TAB PO SCH (08:03)
[2022-11-10] MEDS: cloNIDine 0.1 MG TAB PO SCH ×2 (08:07→19:33)
[2022-11-10] MEDS: Folic Acid 1 MG TAB PO SCH (08:07)
[2022-11-10] MEDS: Thiamine 100 MG TAB PO SCH (08:07)
[2022-11-10] MEDS: Oxazepam 10 MG CAP PO SCH ×3 (08:07→19:33)
[2022-11-10] MEDS: Pregabalin 50 MG CAP PO SCH ×3 (08:08→19:34)
[2022-11-10] MEDS: Senokot S 8.6-50 MG TAB PO SCH ×2 (08:09→19:36)
[2022-11-10] MEDS: Polyethylene Glycol 3350 17 GM Packet PO SCH (08:09)
[2022-11-10] MEDS: Nicotine 21 MG PATCH TD SCH (08:09)
[2022-11-10] MEDS: Bisacodyl 10 MG SUPP PR SCH (08:09)
[2022-11-10] MEDS: Lisinopril 10 MG TAB PO SCH (19:34)
[2022-11-11] MEDS: Ibuprofen 200 MG TAB PO SCH ×4 (00:01→19:39)
[2022-11-11] MEDS: Acetaminophen/Codeine 30-300mg Tablet PO SCH ×4 (06:20→23:13)
[2022-11-11] MEDS: Oxazepam 10 MG CAP PO SCH ×3 (08:57→19:39)
[2022-11-11] MEDS: Pregabalin 50 MG CAP PO SCH ×3 (08:57→19:39)
[2022-11-11] MEDS: Polyethylene Glycol 3350 17 GM Packet PO SCH (08:57)
[2022-11-11] MEDS: Folic Acid 1 MG TAB PO SCH (08:57)
[2022-11-11] MEDS: Multivitamin W/ Minerals 1 TAB PO SCH (08:57)
[2022-11-11] MEDS: Thiamine 100 MG TAB PO SCH (08:57)
[2022-11-11] MEDS: Senokot S 8.6-50 MG TAB PO SCH ×2 (08:57→19:39)
[2022-11-11] MEDS: cloNIDine 0.1 MG TAB PO SCH ×2 (08:58→19:39)
[2022-11-11] MEDS: Nicotine 21 MG PATCH TD SCH (08:58)
[2022-11-11] MEDS: Bisacodyl 10 MG SUPP PR SCH (08:58)
[2022-11-11] MEDS: Cyclobenzaprine 10 MG TAB PO PRN (11:55)
[2022-11-11] MEDS: Lisinopril 10 MG TAB PO SCH (19:39)
[2022-11-12] MEDS: Ibuprofen 200 MG TAB PO SCH ×4 (02:06→20:00)
[2022-11-12] MEDS: Acetaminophen/Codeine 30-300mg Tablet PO SCH ×4 (05:24→23:00)
[2022-11-12] MEDS: Thiamine 100 MG TAB PO SCH (08:59)
[2022-11-12] MEDS: Folic Acid 1 MG TAB PO SCH (08:59)
[2022-11-12] MEDS: Oxazepam 10 MG CAP PO SCH ×3 (08:59→20:00)
[2022-11-12] MEDS: Pregabalin 50 MG CAP PO SCH ×3 (08:59→20:00)
[2022-11-12] MEDS: Multivitamin W/ Minerals 1 TAB PO SCH (09:00)
[2022-11-12] MEDS: Polyethylene Glycol 3350 17 GM Packet PO SCH (09:00)
[2022-11-12] MEDS: Senokot S 8.6-50 MG TAB PO SCH ×2 (09:00→19:59)
[2022-11-12] MEDS: Bisacodyl 10 MG SUPP PR SCH (09:00)
[2022-11-12] MEDS: cloNIDine 0.1 MG TAB PO SCH ×2 (09:00→20:00)
[2022-11-12] MEDS: Nicotine 21 MG PATCH TD SCH (09:00)
[2022-11-12] MEDS: Cyclobenzaprine 10 MG TAB PO PRN (17:57)
[2022-11-12] MEDS: Lisinopril 10 MG TAB PO SCH (20:00)
[2022-11-13] MEDS: Ibuprofen 200 MG TAB PO SCH ×4 (01:00→20:42)
[2022-11-13] MEDS: Acetaminophen/Codeine 30-300mg Tablet PO SCH ×4 (05:20→23:01)
[2022-11-13 05:47] LABS: Hemoglobin 11.1 g/dL (14.0-18.0); Platelet Count 605 10x3/uL (130-400)
[2022-11-13] MEDS: Pregabalin 50 MG CAP PO SCH ×3 (08:48→20:41)
[2022-11-13] MEDS: Nicotine 21 MG PATCH TD SCH (08:53)
[2022-11-13] MEDS: Oxazepam 10 MG CAP PO SCH ×3 (08:53→20:41)
[2022-11-13] MEDS: Cyclobenzaprine 10 MG TAB PO PRN ×2 (08:53→17:34)
[2022-11-13] MEDS: Multivitamin W/ Minerals 1 TAB PO SCH (08:54)
[2022-11-13] MEDS: Senokot S 8.6-50 MG TAB PO SCH ×2 (08:54→20:41)
[2022-11-13] MEDS: cloNIDine 0.1 MG TAB PO SCH ×2 (08:54→20:42)
[2022-11-13] MEDS: Folic Acid 1 MG TAB PO SCH (08:55)
[2022-11-13] MEDS: Thiamine 100 MG TAB PO SCH (08:55)
[2022-11-13] MEDS: Bisacodyl 10 MG SUPP PR SCH (08:55)
[2022-11-13] MEDS: Polyethylene Glycol 3350 17 GM Packet PO SCH (08:56)
[2022-11-13] MEDS: Lisinopril 10 MG TAB PO SCH (20:41)
[2022-11-14] MEDS: Ibuprofen 200 MG TAB PO SCH ×4 (02:00→20:31)
[2022-11-14] MEDS: Acetaminophen/Codeine 30-300mg Tablet PO SCH ×4 (05:08→23:13)
[2022-11-14] MEDS: Oxazepam 10 MG CAP PO SCH ×3 (09:07→20:31)
[2022-11-14] MEDS: Cyclobenzaprine 10 MG TAB PO PRN ×2 (09:07→20:31)
[2022-11-14] MEDS: Pregabalin 50 MG CAP PO SCH ×3 (09:09→20:30)
[2022-11-14] MEDS: Senokot S 8.6-50 MG TAB PO SCH ×2 (09:09→20:30)
[2022-11-14] MEDS: Multivitamin W/ Minerals 1 TAB PO SCH (09:10)
[2022-11-14] MEDS: Thiamine 100 MG TAB PO SCH (09:10)
[2022-11-14] MEDS: Folic Acid 1 MG TAB PO SCH (09:10)
[2022-11-14] MEDS: Nicotine 21 MG PATCH TD SCH (09:10)
[2022-11-14] MEDS: cloNIDine 0.1 MG TAB PO SCH ×2 (09:10→20:31)
[2022-11-14] MEDS: Polyethylene Glycol 3350 17 GM Packet PO SCH (09:11)
[2022-11-14] MEDS: Bisacodyl 10 MG SUPP PR SCH (09:11)
[2022-11-14] MEDS: Lisinopril 10 MG TAB PO SCH (20:31)
[2022-11-15] MEDS: Ibuprofen 200 MG TAB PO SCH ×4 (02:56→20:50)
[2022-11-15] MEDS: Cyclobenzaprine 10 MG TAB PO PRN ×2 (02:56→08:43)
[2022-11-15] MEDS: Acetaminophen/Codeine 30-300mg Tablet PO SCH ×4 (05:36→23:20)
[2022-11-15] MEDS: Pregabalin 50 MG CAP PO SCH ×3 (08:42→20:49)
[2022-11-15] MEDS: Multivitamin W/ Minerals 1 TAB PO SCH (08:43)
[2022-11-15] MEDS: Folic Acid 1 MG TAB PO SCH (08:43)
[2022-11-15] MEDS: cloNIDine 0.1 MG TAB PO SCH ×2 (08:43→20:50)
[2022-11-15] MEDS: Oxazepam 10 MG CAP PO SCH ×2 (08:43→20:49)
[2022-11-15] MEDS: Thiamine 100 MG TAB PO SCH (08:44)
[2022-11-15] MEDS: Nicotine 21 MG PATCH TD SCH (08:44)
[2022-11-15] MEDS: Senokot S 8.6-50 MG TAB PO SCH ×2 (08:45→20:49)
[2022-11-15] MEDS: Polyethylene Glycol 3350 17 GM Packet PO SCH (08:45)
[2022-11-15] MEDS: tiZANidine HCl 4 MG TAB PO PRN ×2 (12:39→20:50)
[2022-11-15] MEDS: Lisinopril 10 MG TAB PO SCH (20:49)
[2022-11-16] MEDS: Ibuprofen 200 MG TAB PO SCH ×2 (02:58→08:29)
[2022-11-16] MEDS: Acetaminophen/Codeine 30-300mg Tablet PO SCH ×4 (05:47→23:43)
[2022-11-16] MEDS: tiZANidine HCl 4 MG TAB PO PRN ×3 (05:49→23:43)
[2022-11-16 06:24] LABS: #Basophils 0.1 thou/uL (0.0-0.2); #Eosinphils 0.9 thou/uL (0.0-0.7); #Monocytes 0.7 thou/uL (0.11-0.59); #Neutrophils 2.7 thou/uL (1.40-6.50); %Basophils 1.7 % (0.0-1.0); %Eosinophils 13.4 % (0.0-10.0); %Lymphocytes 32.7 % (21.0-51.0); %Monocytes 11.2 % (0.0-10.0); %Neutrophils 40.7 % (42.0-75.0); Hemoglobin 12.1 g/dL (14.0-18.0); Mean Corpuscular HGB CONC 33.2 g/dL (32.0-36.0); Mean Corpuscular Hemoglobin 31.8 pg (27.0-31.0); Mean Corpuscular Volume 95.8 fl (78.0-98.0); Mean Platelet Volume 8.3 fL (7.4-10.4); Platelet Count 550 10x3/uL (130-400); RBC Distribution Width 13.2 % (11.5-14.5); Red Blood Cell (RBC) Count 3.81 mill/uL (4.70-6.10); White Blood Cell (WBC) Count 6.5 10x3/uL (4.8-10.8)
[2022-11-16 06:49] LABS: ALT (SGPT) 15 U/L (8-55); AST (SGOT) 20 U/L (5-34); Albumin 3.9 g/dL (3.5-5.0); Alkaline Phosphatase 171 U/L (40-110); Anion Gap 16 mmol/L (10-20); BUN (Urea Nitrogen) 20 mg/dL (8.9-20.6); Bilirubin, Total 0.4 mg/dL (0.2-1.2); Calc. Creatinine Clearance 101 mL/min (70-130); Carbon Dioxide 25 mmol/L (22-29); Chloride 99 mmol/L (98-107); Estimated GFR 111; Globulin 3.2 g/dL (2.4-3.5); Glucose 93 mg/dL (70-105); Potassium 4.6 mmol/L (3.5-5.1); Protein, Total 7.1 g/dL (6.0-8.3); Sodium 135 mmol/L (136-145)
[2022-11-16] MEDS: Senokot S 8.6-50 MG TAB PO SCH ×2 (08:26→20:05)
[2022-11-16] MEDS: Folic Acid 1 MG TAB PO SCH (08:27)
[2022-11-16] MEDS: cloNIDine 0.1 MG TAB PO SCH ×2 (08:27→20:05)
[2022-11-16] MEDS: Pregabalin 50 MG CAP PO SCH (08:27)
[2022-11-16] MEDS: Thiamine 100 MG TAB PO SCH (08:27)
[2022-11-16] MEDS: Multivitamin W/ Minerals 1 TAB PO SCH (08:29)
[2022-11-16] MEDS: Oxazepam 10 MG CAP PO SCH ×2 (08:30→20:05)
[2022-11-16] MEDS: Polyethylene Glycol 3350 17 GM Packet PO SCH ×2 (08:34→18:17)
[2022-11-16] MEDS: Nicotine 21 MG PATCH TD SCH (08:34)
[2022-11-16] MEDS: Pregabalin 75 MG CAP PO SCH (20:05)
[2022-11-16] MEDS: CeleCOXIB 100 MG CAP PO SCH (20:05)
[2022-11-16] MEDS: Lisinopril 10 MG TAB PO SCH (20:05)
[2022-11-16] MEDS ORDERED: Famotidine 20 MG TAB PO SCH (21:00)
[2022-11-17] MEDS: Acetaminophen/Codeine 30-300mg Tablet PO SCH ×3 (05:49→18:14)
[2022-11-17] MEDS: Polyethylene Glycol 3350 17 GM Packet PO SCH (08:32)
[2022-11-17] MEDS: cloNIDine 0.1 MG TAB PO SCH ×2 (08:33→19:44)
[2022-11-17] MEDS: CeleCOXIB 100 MG CAP PO SCH ×2 (08:33→19:44)
[2022-11-17] MEDS: Pregabalin 75 MG CAP PO SCH (08:34)
[2022-11-17] MEDS: Thiamine 100 MG TAB PO SCH (08:34)
[2022-11-17] MEDS: Folic Acid 1 MG TAB PO SCH (08:34)
[2022-11-17] MEDS: Senokot S 8.6-50 MG TAB PO SCH ×2 (08:34→19:43)
[2022-11-17] MEDS: Multivitamin W/ Minerals 1 TAB PO SCH (08:34)
[2022-11-17] MEDS: DULoxetine 30 MG CAP PO SCH (08:34)
[2022-11-17] MEDS: Gabapentin 300 MG CAP PO SCH ×2 (15:41→19:44)
[2022-11-17] MEDS: Lisinopril 10 MG TAB PO SCH (19:43)
[2022-11-17] MEDS: tiZANidine HCl 4 MG TAB PO PRN (19:44)
[2022-11-18] MEDS: Acetaminophen/Codeine 30-300mg Tablet PO SCH ×4 (00:22→18:41)
[2022-11-18] MEDS: tiZANidine HCl 4 MG TAB PO PRN ×2 (06:12→20:10)
[2022-11-18] MEDS: Thiamine 100 MG TAB PO SCH (10:28)
[2022-11-18] MEDS: CeleCOXIB 100 MG CAP PO SCH ×2 (10:28→20:11)
[2022-11-18] MEDS: DULoxetine 30 MG CAP PO SCH (10:29)
[2022-11-18] MEDS: cloNIDine 0.1 MG TAB PO SCH ×2 (10:29→20:11)
[2022-11-18] MEDS: Gabapentin 300 MG CAP PO SCH ×2 (10:29→20:12)
[2022-11-18] MEDS: Multivitamin W/ Minerals 1 TAB PO SCH (10:30)
[2022-11-18] MEDS: Senokot S 8.6-50 MG TAB PO SCH ×2 (10:30→20:10)
[2022-11-18] MEDS: Polyethylene Glycol 3350 17 GM Packet PO SCH (10:30)
[2022-11-18] MEDS: Folic Acid 1 MG TAB PO SCH (10:30)
[2022-11-18] MEDS: Lisinopril 10 MG TAB PO SCH (20:12)
[2022-11-18] MEDS: Melatonin 3 MG TAB PO PRN (22:34)
[2022-11-19] MEDS: Acetaminophen/Codeine 30-300mg Tablet PO SCH ×4 (00:41→17:27)
[2022-11-19] MEDS: diphenhydrAMINE 25 MG CAP PO PRN ×2 (02:25→20:49)
[2022-11-19] MEDS: tiZANidine HCl 4 MG TAB PO PRN ×2 (04:45→15:18)
[2022-11-19] MEDS: CeleCOXIB 100 MG CAP PO SCH ×2 (09:04→20:44)
[2022-11-19] MEDS: Gabapentin 300 MG CAP PO SCH ×3 (09:04→20:44)
[2022-11-19] MEDS: DULoxetine 30 MG CAP PO SCH (09:05)
[2022-11-19] MEDS: Folic Acid 1 MG TAB PO SCH (09:05)
[2022-11-19] MEDS: Thiamine 100 MG TAB PO SCH (09:05)
[2022-11-19] MEDS: Multivitamin W/ Minerals 1 TAB PO SCH (09:05)
[2022-11-19] MEDS: cloNIDine 0.1 MG TAB PO SCH ×2 (09:05→20:44)
[2022-11-19] MEDS: Senokot S 8.6-50 MG TAB PO SCH ×2 (09:13→20:43)
[2022-11-19] MEDS: Polyethylene Glycol 3350 17 GM Packet PO SCH (09:13)
[2022-11-19] MEDS: Lisinopril 10 MG TAB PO SCH (20:44)
[2022-11-19] MEDS: QUEtiapine 25 MG TAB PO SCH (20:44)
[2022-11-19] MEDS: Melatonin 3 MG TAB PO PRN (20:49)
[2022-11-20] MEDS: Acetaminophen/Codeine 30-300mg Tablet PO SCH ×5 (01:02→23:18)
[2022-11-20] MEDS: tiZANidine HCl 4 MG TAB PO PRN ×2 (04:09→12:12)
[2022-11-20] MEDS: Polyethylene Glycol 3350 17 GM Packet PO SCH (08:00)
[2022-11-20] MEDS: CeleCOXIB 100 MG CAP PO SCH ×2 (08:00→20:49)
[2022-11-20] MEDS: Senokot S 8.6-50 MG TAB PO SCH ×2 (08:01→20:48)
[2022-11-20] MEDS: Gabapentin 300 MG CAP PO SCH ×3 (08:01→20:49)
[2022-11-20] MEDS: Folic Acid 1 MG TAB PO SCH (08:01)
[2022-11-20] MEDS: cloNIDine 0.1 MG TAB PO SCH ×2 (08:01→20:48)
[2022-11-20] MEDS: Thiamine 100 MG TAB PO SCH (08:02)
[2022-11-20] MEDS: DULoxetine 30 MG CAP PO SCH (08:02)
[2022-11-20] MEDS: Multivitamin W/ Minerals 1 TAB PO SCH (08:02)
[2022-11-20] MEDS: Diclofenac 1% 100 GM GEL TP SCH ×3 (12:16→20:49)
[2022-11-20] MEDS: Lisinopril 10 MG TAB PO SCH (20:50)
[2022-11-20] MEDS: QUEtiapine 25 MG TAB PO SCH (23:19)
[2022-11-20] MEDS: Melatonin 3 MG TAB PO PRN (23:28)
[2022-11-20] MEDS: diphenhydrAMINE 25 MG CAP PO PRN (23:28)
[2022-11-21] MEDS: tiZANidine HCl 4 MG TAB PO PRN ×3 (04:47→20:15)
[2022-11-21] MEDS: Acetaminophen/Codeine 30-300mg Tablet PO SCH ×4 (04:47→23:22)
[2022-11-21] MEDS: Gabapentin 300 MG CAP PO SCH ×3 (09:16→21:00)
[2022-11-21] MEDS: Folic Acid 1 MG TAB PO SCH (09:17)
[2022-11-21] MEDS: Multivitamin W/ Minerals 1 TAB PO SCH (09:17)
[2022-11-21] MEDS: Diclofenac 1% 100 GM GEL TP SCH ×4 (09:17→21:02)
[2022-11-21] MEDS: DULoxetine 30 MG CAP PO SCH (09:17)
[2022-11-21] MEDS: Thiamine 100 MG TAB PO SCH (09:17)
[2022-11-21] MEDS: cloNIDine 0.1 MG TAB PO SCH ×2 (09:17→21:01)
[2022-11-21] MEDS: Senokot S 8.6-50 MG TAB PO SCH ×2 (09:17→21:01)
[2022-11-21] MEDS: CeleCOXIB 100 MG CAP PO SCH ×2 (09:18→21:02)
[2022-11-21] MEDS: Polyethylene Glycol 3350 17 GM Packet PO SCH (09:18)
[2022-11-21] MEDS ORDERED: tiZANidine HCl 4 MG TAB ONE (20:10)
[2022-11-21] MEDS: Lisinopril 10 MG TAB PO SCH (21:01)
[2022-11-21] MEDS: Melatonin 3 MG TAB PO PRN (23:22)
[2022-11-21] MEDS: diphenhydrAMINE 25 MG CAP PO PRN (23:23)
[2022-11-21] MEDS: QUEtiapine 25 MG TAB PO SCH (23:23)
[2022-11-22] MEDS: tiZANidine HCl 4 MG TAB PO PRN ×2 (04:37→12:35)
[2022-11-22] MEDS: Acetaminophen/Codeine 30-300mg Tablet PO SCH ×3 (05:43→18:15)
[2022-11-22 06:54] LABS: Hemoglobin 11.9 g/dL (14.0-18.0); Platelet Count 329 10x3/uL (130-400)
[2022-11-22 07:18] LABS: Anion Gap 9 mmol/L (10-20); BUN (Urea Nitrogen) 8 mg/dL (8.9-20.6); Calc. Creatinine Clearance 109 mL/min (70-130); Calcium 9.8 mg/dL (7.8-10.44); Carbon Dioxide 30 mmol/L (22-29); Chloride 99 mmol/L (98-107); Estimated GFR 113; Glucose 87 mg/dL (70-105); Potassium 4.4 mmol/L (3.5-5.1); Sodium 134 mmol/L (136-145)
[2022-11-22] MEDS: Diclofenac 1% 100 GM GEL TP SCH ×4 (09:06→20:53)
[2022-11-22] MEDS: Polyethylene Glycol 3350 17 GM Packet PO SCH (09:06)
[2022-11-22] MEDS: Senokot S 8.6-50 MG TAB PO SCH ×2 (09:07→20:48)
[2022-11-22] MEDS: DULoxetine 30 MG CAP PO SCH (09:07)
[2022-11-22] MEDS: cloNIDine 0.1 MG TAB PO SCH ×2 (09:07→20:48)
[2022-11-22] MEDS: CeleCOXIB 100 MG CAP PO SCH ×2 (09:08→20:49)
[2022-11-22] MEDS: Thiamine 100 MG TAB PO SCH (09:08)
[2022-11-22] MEDS: Multivitamin W/ Minerals 1 TAB PO SCH (09:08)
[2022-11-22] MEDS: Folic Acid 1 MG TAB PO SCH (09:08)
[2022-11-22] MEDS: Gabapentin 300 MG CAP PO SCH ×3 (09:08→20:48)
[2022-11-22] MEDS: Lisinopril 10 MG TAB PO SCH (20:48)
[2022-11-22] MEDS: diphenhydrAMINE 25 MG CAP PO PRN (23:09)
[2022-11-22] MEDS: QUEtiapine 25 MG TAB PO SCH (23:09)
[2022-11-22] MEDS: Melatonin 3 MG TAB PO PRN (23:09)
[2022-11-23] MEDS: Acetaminophen/Codeine 30-300mg Tablet PO SCH ×4 (00:23→17:29)
[2022-11-23] MEDS: tiZANidine HCl 4 MG TAB PO PRN ×2 (00:23→12:05)
[2022-11-23] MEDS: Diclofenac 1% 100 GM GEL TP SCH ×4 (09:22→20:15)
[2022-11-23] MEDS: DULoxetine 30 MG CAP PO SCH (09:23)
[2022-11-23] MEDS: Gabapentin 300 MG CAP PO SCH ×3 (09:23→20:16)
[2022-11-23] MEDS: Multivitamin W/ Minerals 1 TAB PO SCH (09:23)
[2022-11-23] MEDS: Thiamine 100 MG TAB PO SCH (09:23)
[2022-11-23] MEDS: cloNIDine 0.1 MG TAB PO SCH ×2 (09:24→20:17)
[2022-11-23] MEDS: CeleCOXIB 100 MG CAP PO SCH ×2 (09:24→20:17)
[2022-11-23] MEDS: Folic Acid 1 MG TAB PO SCH (09:24)
[2022-11-23] MEDS: Senokot S 8.6-50 MG TAB PO SCH ×2 (09:24→20:16)
[2022-11-23] MEDS: Polyethylene Glycol 3350 17 GM Packet PO SCH (11:01)
[2022-11-23] MEDS: Lisinopril 10 MG TAB PO SCH (20:16)
[2022-11-23] MEDS: Melatonin 3 MG TAB PO PRN (23:01)
[2022-11-23] MEDS: QUEtiapine 25 MG TAB PO SCH (23:01)
[2022-11-23] MEDS: diphenhydrAMINE 25 MG CAP PO PRN (23:01)
[2022-11-24] MEDS: Acetaminophen/Codeine 30-300mg Tablet PO SCH ×5 (00:15→23:09)
[2022-11-24] MEDS: tiZANidine HCl 4 MG TAB PO PRN ×3 (00:16→23:10)
[2022-11-24] MEDS: Gabapentin 300 MG CAP PO SCH ×3 (08:57→22:01)
[2022-11-24] MEDS: Folic Acid 1 MG TAB PO SCH (08:57)
[2022-11-24] MEDS: Polyethylene Glycol 3350 17 GM Packet PO SCH (08:57)
[2022-11-24] MEDS: Senokot S 8.6-50 MG TAB PO SCH ×2 (08:57→22:03)
[2022-11-24] MEDS: cloNIDine 0.1 MG TAB PO SCH ×2 (08:57→22:02)
[2022-11-24] MEDS: Thiamine 100 MG TAB PO SCH (08:58)
[2022-11-24] MEDS: DULoxetine 30 MG CAP PO SCH (08:58)
[2022-11-24] MEDS: CeleCOXIB 100 MG CAP PO SCH ×2 (08:59→21:59)
[2022-11-24] MEDS: Diclofenac 1% 100 GM GEL TP SCH ×4 (08:59→22:02)
[2022-11-24] MEDS: Multivitamin W/ Minerals 1 TAB PO SCH (08:59)
[2022-11-24] MEDS: Lisinopril 10 MG TAB PO SCH (22:00)
[2022-11-24] MEDS: Melatonin 3 MG TAB PO PRN (23:10)
[2022-11-24] MEDS: QUEtiapine 25 MG TAB PO SCH (23:10)
[2022-11-24] MEDS: diphenhydrAMINE 25 MG CAP PO PRN (23:10)
[2022-11-25] MEDS: Acetaminophen/Codeine 30-300mg Tablet PO SCH ×4 (05:19→23:55)
[2022-11-25] MEDS ORDERED: Naloxone HCl 0.4 mg/ml Vial IV PRN (07:33)
[2022-11-25] MEDS: Multivitamin W/ Minerals 1 TAB PO SCH (09:09)
[2022-11-25] MEDS: Thiamine 100 MG TAB PO SCH (09:09)
[2022-11-25] MEDS: DULoxetine 30 MG CAP PO SCH (09:09)
[2022-11-25] MEDS: Folic Acid 1 MG TAB PO SCH (09:10)
[2022-11-25] MEDS: Gabapentin 300 MG CAP PO SCH ×3 (09:10→20:25)
[2022-11-25] MEDS: cloNIDine 0.1 MG TAB PO SCH ×2 (09:10→20:24)
[2022-11-25] MEDS: Senokot S 8.6-50 MG TAB PO SCH ×2 (09:10→20:24)
[2022-11-25] MEDS: Diclofenac 1% 100 GM GEL TP SCH ×4 (09:11→20:25)
[2022-11-25] MEDS: CeleCOXIB 100 MG CAP PO SCH ×2 (09:11→20:23)
[2022-11-25] MEDS: Polyethylene Glycol 3350 17 GM Packet PO SCH (09:12)
[2022-11-25] MEDS: tiZANidine HCl 4 MG TAB PO PRN ×2 (12:11→20:24)
[2022-11-25] MEDS: Lisinopril 10 MG TAB PO SCH (20:24)
[2022-11-25] MEDS: diphenhydrAMINE 25 MG CAP PO PRN (23:54)
[2022-11-25] MEDS: QUEtiapine 25 MG TAB PO SCH (23:55)
[2022-11-25] MEDS: Melatonin 3 MG TAB PO PRN (23:55)
[2022-11-26] MEDS: Acetaminophen/Codeine 30-300mg Tablet PO SCH ×4 (05:49→23:03)
[2022-11-26] MEDS: tiZANidine HCl 4 MG TAB PO PRN ×3 (05:49→23:03)
[2022-11-26] MEDS: Senokot S 8.6-50 MG TAB PO SCH ×2 (09:37→20:09)
[2022-11-26] MEDS: Folic Acid 1 MG TAB PO SCH (09:37)
[2022-11-26] MEDS: Thiamine 100 MG TAB PO SCH (09:37)
[2022-11-26] MEDS: cloNIDine 0.1 MG TAB PO SCH ×2 (09:37→20:10)
[2022-11-26] MEDS: DULoxetine 30 MG CAP PO SCH (09:37)
[2022-11-26] MEDS: Gabapentin 300 MG CAP PO SCH ×3 (09:38→20:09)
[2022-11-26] MEDS: Multivitamin W/ Minerals 1 TAB PO SCH (09:38)
[2022-11-26] MEDS: CeleCOXIB 100 MG CAP PO SCH ×2 (09:39→20:11)
[2022-11-26] MEDS: Polyethylene Glycol 3350 17 GM Packet PO SCH (09:49)
[2022-11-26] MEDS: Diclofenac 1% 100 GM GEL TP SCH ×4 (09:49→20:11)
[2022-11-26] MEDS: Lisinopril 10 MG TAB PO SCH (20:10)
[2022-11-26] MEDS: Melatonin 3 MG TAB PO PRN (23:03)
[2022-11-26] MEDS: QUEtiapine 25 MG TAB PO SCH (23:03)
[2022-11-27] MEDS: Acetaminophen/Codeine 30-300mg Tablet PO SCH ×4 (05:56→23:01)
[2022-11-27] MEDS: Multivitamin W/ Minerals 1 TAB PO SCH (10:10)
[2022-11-27] MEDS: Folic Acid 1 MG TAB PO SCH (10:10)
[2022-11-27] MEDS: Thiamine 100 MG TAB PO SCH (10:10)
[2022-11-27] MEDS: Senokot S 8.6-50 MG TAB PO SCH ×2 (10:10→20:16)
[2022-11-27] MEDS: cloNIDine 0.1 MG TAB PO SCH (10:11)
[2022-11-27] MEDS: CeleCOXIB 100 MG CAP PO SCH ×2 (10:11→20:22)
[2022-11-27] MEDS: DULoxetine 30 MG CAP PO SCH (10:11)
[2022-11-27] MEDS: Gabapentin 300 MG CAP PO SCH ×3 (10:11→20:16)
[2022-11-27] MEDS: Polyethylene Glycol 3350 17 GM Packet PO SCH (10:12)
[2022-11-27] MEDS: Diclofenac 1% 100 GM GEL TP SCH ×4 (10:12→20:21)
[2022-11-27] MEDS: tiZANidine HCl 4 MG TAB PO PRN ×2 (11:41→23:00)
[2022-11-27] MEDS: Lisinopril 10 MG TAB PO SCH (20:17)
[2022-11-27] MEDS: QUEtiapine 25 MG TAB PO SCH (23:00)
[2022-11-27] MEDS: Melatonin 3 MG TAB PO PRN (23:00)
[2022-11-28] MEDS: Acetaminophen/Codeine 30-300mg Tablet PO SCH ×4 (05:14→23:00)
[2022-11-28] MEDS: Gabapentin 300 MG CAP PO SCH ×3 (09:46→21:35)
[2022-11-28] MEDS: CeleCOXIB 100 MG CAP PO SCH ×2 (09:46→21:38)
[2022-11-28] MEDS: Multivitamin W/ Minerals 1 TAB PO SCH (09:47)
[2022-11-28] MEDS: DULoxetine 30 MG CAP PO SCH (09:47)
[2022-11-28] MEDS: Lisinopril 10 MG TAB PO SCH ×2 (09:47→21:38)
[2022-11-28] MEDS: Polyethylene Glycol 3350 17 GM Packet PO SCH (09:47)
[2022-11-28] MEDS: Senokot S 8.6-50 MG TAB PO SCH ×2 (09:47→21:36)
[2022-11-28] MEDS: Diclofenac 1% 100 GM GEL TP SCH ×4 (09:48→21:34)
[2022-11-28] MEDS: tiZANidine HCl 4 MG TAB PO PRN ×2 (12:14→21:37)
[2022-11-28] MEDS: QUEtiapine 25 MG TAB PO SCH (21:37)
[2022-11-28] MEDS: Melatonin 3 MG TAB PO PRN (21:39)
[2022-11-29] MEDS: Acetaminophen/Codeine 30-300mg Tablet PO SCH ×2 (06:40→12:33)
[2022-11-29 08:02] VITALS: TEMP 98.1
[2022-11-29] MEDS: DULoxetine 30 MG CAP PO SCH (09:40)
[2022-11-29] MEDS: CeleCOXIB 100 MG CAP PO SCH (09:40)
[2022-11-29] MEDS: Gabapentin 300 MG CAP PO SCH ×2 (09:41→15:23)
[2022-11-29] MEDS: Multivitamin W/ Minerals 1 TAB PO SCH (09:41)
[2022-11-29] MEDS: Diclofenac 1% 100 GM GEL TP SCH ×2 (09:43→12:33)
[2022-11-29] MEDS: Lisinopril 10 MG TAB PO SCH (09:43)
[2022-11-29] MEDS: Polyethylene Glycol 3350 17 GM Packet PO SCH (09:43)
[2022-11-29] MEDS: Senokot S 8.6-50 MG TAB PO SCH (09:43)
[2022-11-29] MEDS: tiZANidine HCl 4 MG TAB PO PRN (12:35)
[2022-11-29 13:43] VITALS: BP 133/81
== END 2022-11-29 15:23 | disposition home or self-care (01) | DRG 957 ==
LOC: ERS 20:58 → CCU 21:44 → SURG A 10-31 18:03
PROVIDERS: ADMIT Surgery; ATTEND Surgery
PROC: 0W9930Z Drainage of Right Pleural Cavity with Drainage Device, Percutaneous Approach (ICD-10-PCS; principal; 2022-10-27)
PROC: 0W9B30Z Drainage of Left Pleural Cavity with Drainage Device, Percutaneous Approach (ICD-10-PCS; 2022-10-27)
PROC: 05HY33Z Insertion of Infusion Device into Upper Vein, Percutaneous Approach (ICD-10-PCS; 2022-10-27)
PROC: 30233N1 Transfusion of Nonautologous Red Blood Cells into Peripheral Vein, Percutaneous Approach (ICD-10-PCS; 2022-10-27)
PROC: 6A550Z2 Pheresis of Platelets, Single (ICD-10-PCS; 2022-10-27)
PROC: 4A133R1 Monitoring of Arterial Saturation, Peripheral, Percutaneous Approach (ICD-10-PCS; 2022-10-27)
PROC: 0BH17EZ Insertion of Endotracheal Airway into Trachea, Via Natural or Artificial Opening (ICD-10-PCS; 2022-10-28)
PROC: 5A1935Z Respiratory Ventilation, Less than 24 Consecutive Hours (ICD-10-PCS; 2022-10-28)
PROC: 0SH734Z Insertion of Internal Fixation Device into Right Sacroiliac Joint, Percutaneous Approach (ICD-10-PCS; 2022-10-29)
PROC: 0SH834Z Insertion of Internal Fixation Device into Left Sacroiliac Joint, Percutaneous Approach (ICD-10-PCS; 2022-10-29)
PROC: 30233K1 Transfusion of Nonautologous Frozen Plasma into Peripheral Vein, Percutaneous Approach (ICD-10-PCS; 2022-10-29)
DX: S32.592A Other specified fracture of left pubis, initial encounter for closed fracture (principal); J96.90 Respiratory failure, unspecified, unspecified whether with hypoxia or hypercapnia; S36.115A Moderate laceration of liver, initial encounter; T79.4XXA Traumatic shock, initial encounter; S22.43XA Multiple fractures of ribs, bilateral, initial encounter for closed fracture; S32.038A Other fracture of third lumbar vertebra, initial encounter for closed fracture; S32.048A Other fracture of fourth lumbar vertebra, initial encounter for closed fracture; S32.058A Other fracture of fifth lumbar vertebra, initial encounter for closed fracture; S32.10XA Unspecified fracture of sacrum, initial encounter for closed fracture; S27.0XXA Traumatic pneumothorax, initial encounter; D62 Acute posthemorrhagic anemia; E87.21 Acute metabolic acidosis; S36.899A Unspecified injury of other intra-abdominal organs, initial encounter; S32 Fracture of lumbar spine and pelvis; S32.591A Other specified fracture of right pubis, initial encounter for closed fracture; I10 Essential (primary) hypertension; T79.6XXA Traumatic ischemia of muscle, initial encounter; E83.51 Hypocalcemia; F10.10 Alcohol abuse, uncomplicated; M54.31 Sciatica, right side; N52.9 Male erectile dysfunction, unspecified; M54.16 Radiculopathy, lumbar region; D22.4 Melanocytic nevi of scalp and neck; F17.210 Nicotine dependence, cigarettes, uncomplicated; V84.9XXA Unspecified occupant of special agricultural vehicle injured in nontraffic accident, initial encounter
CPT/HCPCS: 31500; 36415; 36416; 36430; 36600; 51702; 70450; 71045; 71260; 72100; 72125; 72170; 72190; 74177; 80048; 80053; 80076; 80306; 80307; 81001; 82550; 82805; 83605; 83735; 84100; 84484; 85014; 85018; 85025; 85049; 85379; 85610; 85652; 85730; 86850; 86900; 86901; 90471; 93306; 93970; 94002; 94003; 94640; 96365; 96375; 96376; 97139; C1713; C1769; G0306; G0390; J1100; J1170; J1650; J1885; J2272; J2405; J2704; J3010; J3475; J3480; J3490; J7050; J7620; J7999; P9016; P9035; P9048; Q9967; S0028